=== PATIENT | female | born 1980 | race Caucasian/White ===

== ENCOUNTER 2016-11-12 12:23 | Emergency (ER) | payer OTHER ==
[~2016-11-12] VITALS: Wt 105.2 kg
[~2016-11-12 12:23] MED LIST: DICLOFENAC SOD75 MG PO; DIPHENHYDRAMINE25 M1 PO; EFFEXOR XR150 M1 PO; HYDROCODONE BIT1 T11 PO; K-DUR 2020 MEQ PO; KEPPRA500 MG PO; LASIX40 MG PO; LOVENOX120 MG/0.8 SC; LOVENOX150 MG/1 M SC; NAPROXEN D/R500 MG PO; NEURONTIN600 MG PO; TOPAMAX50 MG PO; TOPCARE WOMAN'S5 MG PO; VICODIN ES 7501 TAB PO; VITAMIN D32000 IU PO; VOLTAREN50 M1 PO
[2016-11-12] MEDS ORDERED: NAPROSYN500 MG PO (13:08)
[2016-11-12] MEDS ORDERED: Zofran4 MG PO (13:08)
[2016-11-12] MEDS ORDERED: CLINDAMYCIN HC300 MG PO (13:08)
[2016-11-12] MEDS ORDERED: DIFLUCAN150 MG PO (13:39)
== END 2016-11-12 13:49 | disposition home or self-care (01) ==
LOC: ED 12:23
DX: K08.89 Other specified disorders of teeth and supporting structures (principal); R51 Headache; F17.200 Nicotine dependence, unspecified, uncomplicated; Z88.1 Allergy status to other antibiotic agents; Z88.6 Allergy status to analgesic agent; Z91.040 Latex allergy status; Z79.899 Other long term (current) drug therapy